=== PATIENT | female | born 1975 | race Asian ===

== ENCOUNTER → 2018-08-03 | Outpatient (CLI) | payer BC ==
[~2018-08-03] MED LIST: ALBU90I INH; ATENOLOL-? DOSE; DOXY100 PO; HYDACE7.5 PO; MECL25 PO; META800 PO; ONDA4 PO; OXYACE5T PO; PRED20 PO; RXPROM25 PO
[2018-08-03 14:17] LABS: BASOPHILS ABSOLUTE AUTO 0.03 K/mm3 (0.00-0.23); BASOPHILS PERCENT AUTO 1 % (0-2); EOSINOPHILS ABSOLUTE AUTO 0.02 K/mm3 (0.00-0.68); EOSINOPHILS PERCENT AUTO 0 % (0-6); Hematocrit 38.2 % (33.0-51.0); Hemoglobin 12.9 g/dL (11.5-16.0); IMMATURE GRAN ABSOLUTE AUTO 0.01 K/mm3 (0.00-0.10); IMMATURE GRAN PERCENT AUTO 0 % (0-1); LYMPHOCYTES ABSOLUTE AUTO 1.32 K/mm3 (0.84-5.20); LYMPHOCYTES PERCENT AUTO 27 % (21-46); MONOCYTES ABSOLUTE AUTO 0.49 K/mm3 (0.16-1.47); MONOCYTES PERCENT AUTO 10 % (4-13); Mean Corpuscular HGB 29.8 pg (26.0-34.0); Mean Corpuscular HGB Conc 33.8 g/dL (31.5-36.5); Mean Corpuscular Volume 88 fL (80-100); Mean Platelet Volume 10.4 fL (9.1-12.4); NEUTROPHILS ABSOLUTE AUTO 3.09 K/mm3 (1.96-9.15); NEUTROPHILS PERCENT AUTO 62 % (41-73); Platelet Count 233 K/mm3 (150-400); RDW Coefficient Variation 11.7 % (11.7-14.2); RDW Standard Deviation 37.9 fL (35.1-46.3); Red Blood Cell Count 4.33 M/mm3 (3.80-5.20); White Blood Cell Count 4.96 K/mm3 (4.00-11.30)
[2018-08-03 14:40] LABS: Alanine Aminotransfer (ALT/SGP 32 U/L (12-78); Albumin, Blood 3.6 g/dL (3.4-5.0); Albumin/Globulin Ratio 1.1 (0.8-1.8); Alk Phos 53 U/L (40-126); Anion Gap 12 mmol/L (6-16); Aspartate Aminotrans (AST/SGOT 23 U/L (12-37); Bilirubin, Total 0.3 mg/dL (0.1-1.0); Blood Urea Nitrogen 15 mg/dL (8-24); Bun/Creatinine Ratio 28.8 (12.0-20.0); CO2, Blood 25 mmol/L (21-32); Calcium, Blood 9.6 mg/dL (8.5-10.1); Chloride, Blood 107 mmol/L (98-108); Creatinine, Blood 0.52 mg/dL (0.40-1.00); Globulin, Blood 3.4 g/dL (2.2-4.0); Glomerular Filtration Rate >60 (60-); Glucose, Blood 95 mg/dL (70-99); Potassium, Blood 3.7 mmol/L (3.5-5.5); Sodium, Blood 144 mmol/L (136-145); Troponin I <0.017 ng/mL (0.000-0.040)
[2018-08-03 14:42] LABS: Thyroid Stimulating Hormone <0.005 uIU/mL (0.360-4.800)
[2018-08-03 15:23] LABS: Triiodothyronine, Free 13.59 pg/mL (2.18-3.98)
== END | disposition home or self-care (01) ==
LOC: LAB EV 14:12 → LAB SHORT 14:12
PROVIDERS: Physician Assistant
DX: R55 Syncope and collapse (principal); E05.90 Thyrotoxicosis, unspecified without thyrotoxic crisis or storm
CPT/HCPCS: 80053; 82607; 84439; 84443; 84481; 84484; 85025

== ENCOUNTER → 2019-02-05 | Outpatient (CLI) | payer BC ==
[2019-02-05 18:46] LABS: BASOPHILS ABSOLUTE AUTO 0.03 K/mm3 (0.00-0.23); BASOPHILS PERCENT AUTO 1 % (0-2); EOSINOPHILS ABSOLUTE AUTO 0.03 K/mm3 (0.00-0.68); EOSINOPHILS PERCENT AUTO 1 % (0-6); Hematocrit 38.3 % (33.0-51.0); Hemoglobin 13.4 g/dL (11.5-16.0); IMMATURE GRAN ABSOLUTE AUTO 0.01 K/mm3 (0.00-0.10); IMMATURE GRAN PERCENT AUTO 0 % (0-1); LYMPHOCYTES ABSOLUTE AUTO 1.18 K/mm3 (0.84-5.20); LYMPHOCYTES PERCENT AUTO 18 % (21-46); MONOCYTES ABSOLUTE AUTO 0.37 K/mm3 (0.16-1.47); MONOCYTES PERCENT AUTO 6 % (4-13); Mean Corpuscular HGB 31.3 pg (26.0-34.0); Mean Corpuscular Volume 90 fL (80-100); Mean Platelet Volume 10.4 fL (9.1-12.4); NEUTROPHILS PERCENT AUTO 75 % (41-73); Platelet Count 269 K/mm3 (150-400); RDW Coefficient Variation 12.4 % (11.7-14.2); RDW Standard Deviation 40.2 fL (35.1-46.3); Red Blood Cell Count 4.28 M/mm3 (3.80-5.20); White Blood Cell Count 6.42 K/mm3 (4.00-11.30)
[2019-02-05 18:55] LABS: Alanine Aminotransfer (ALT/SGP 48 U/L (12-78); Albumin, Blood 4.4 g/dL (3.4-5.0); Albumin/Globulin Ratio 1.1 (0.8-1.8); Alk Phos 84 U/L (40-126); Anion Gap 10 mmol/L (6-16); Aspartate Aminotrans (AST/SGOT 29 U/L (12-37); Bilirubin, Total 0.4 mg/dL (0.1-1.0); Blood Urea Nitrogen 10 mg/dL (8-24); Bun/Creatinine Ratio 14.1 (12.0-20.0); CO2, Blood 27 mmol/L (21-32); Calcium, Blood 9.4 mg/dL (8.5-10.1); Chloride, Blood 103 mmol/L (98-108); Creatinine, Blood 0.71 mg/dL (0.40-1.00); Globulin, Blood 3.9 g/dL (2.2-4.0); Glomerular Filtration Rate >60 (60-); Glucose, Blood 106 mg/dL (70-99); Potassium, Blood 3.7 mmol/L (3.5-5.5); Sodium, Blood 140 mmol/L (136-145); Total Protein, Blood 8.3 g/dL (6.4-8.2)
== END ==
LOC: LAB EV 18:40 → LAB SHORT 18:40
PROVIDERS: Physician Assistant Surgical
DX: R10.11 Right upper quadrant pain (principal)
CPT/HCPCS: 80053; 83690; 85025

== ENCOUNTER → 2019-06-03 | Outpatient (CLI) | payer BC | END | disposition home or self-care (01) | LOC: LAB SHORT 14:11 → PLD 14:11 | DX: D22.5 Melanocytic nevi of trunk (principal); D22.62 Melanocytic nevi of left upper limb, including shoulder | CPT/HCPCS: 88305 ==

== ENCOUNTER 2019-12-28 07:31 | Day surgery (SDC) | payer BC ==
[~2019-12-28] VITALS: Ht 175.3 cm; Wt 101.6 kg
[2019-12-28] MEDS ORDERED: METO25ER PO (08:03)
[2019-12-28] MEDS ORDERED: FERROUS SULFAT324 MG PO (08:03)
[2019-12-28] MEDS ORDERED: LEVSOD100 PO (08:04)
[2019-12-28] MEDS ORDERED: Flonase 0.05% N16 GM (08:04)
[2019-12-28] MEDS ORDERED: LOSARTAN POTAS100 MG PO (08:04)
== END 2019-12-28 09:38 | disposition home or self-care (01) ==
LOC: ORSCSDS 07:31
PROVIDERS: Internal Medicine Gastroenterology
PROC: 0DBE8ZX Excision of Large Intestine, Via Natural or Artificial Opening Endoscopic, Diagnostic (ICD-10-PCS; principal; 2019-12-28 08:45)
PROC: 0DB68ZX Excision of Stomach, Via Natural or Artificial Opening Endoscopic, Diagnostic (ICD-10-PCS; principal; 2019-12-28 08:45)
PROC: 0DB98ZX Excision of Duodenum, Via Natural or Artificial Opening Endoscopic, Diagnostic (ICD-10-PCS; principal; 2019-12-28 08:45)
DX: R10.13 Epigastric pain (principal); R11.2 Nausea with vomiting, unspecified; K64.8 Other hemorrhoids; K25.9 Gastric ulcer, unspecified as acute or chronic, without hemorrhage or perforation; I10 Essential (primary) hypertension; M79.7 Fibromyalgia; E03.9 Hypothyroidism, unspecified; Z86.73 Personal history of transient ischemic attack (TIA), and cerebral infarction without residual deficits; F32.9 Major depressive disorder, single episode, unspecified; E05.00 Thyrotoxicosis with diffuse goiter without thyrotoxic crisis or storm; R19.4 Change in bowel habit; D64.9 Anemia, unspecified; Z80.0 Family history of malignant neoplasm of digestive organs; Z79.899 Other long term (current) drug therapy
CPT/HCPCS: 88305; 88342; J0330; J0461; J2405; J2704; J7120

== ENCOUNTER 2020-10-03 11:40 | Day surgery (SDC) | payer BC ==
[~2020-10-03] VITALS: Ht 177.8 cm; Wt 105.7 kg
[~2020-10-03 11:40] MED LIST changes: +Atarax10 MG PO; +FERROUS SULFAT324 MG PO; +Flonase 0.05% N16 GM; +LEVSOD100 PO; +LOSARTAN POTAS100 MG PO; +METO25ER PO; +METO50ER PO; +ONDA4ODT MM
[2020-10-03] MEDS ORDERED: ZYRTEC10 M2 PO (12:21)
[2020-10-03] MEDS ORDERED: BENADRYL25 MG PO (12:21)
[2020-10-03] MEDS ORDERED: ACET500 (12:21)
[2020-10-03] MEDS ORDERED: LORA10ER PO (12:21)
--- NOTE | 2020-10-03 13:08 | NUR ---
10/03/[address] IN TO OBTAIN ANESTHESIA CONSENT, CONSENT OBTAINED PATIENT PREPPED FOR INTERSCALENE BLOCK, VS DR. NAOMIE LÓPEZ ADMINISTERED SEDATION MEDICATION VIA IV TO HELP THE PATIENT RELAX PRIOR TO THE BLOCK, INTERSCALENE BLOCK COMPLETED WITHOUT COMPLICATION, PATIENT TOLERATED WELL, VS REMAIN STABLE
--- NOTE | 2020-10-03 13:44 | NUR ---
10/03/20 1344 Huber Mendez 1 MG EPI ADDED TO EACH OF THE FIRST 3 BAGS OF LR FOR IRRIGATION/
[2020-10-04] MEDS ORDERED: ACET500 PO (14:36)
[2020-10-04] MEDS ORDERED: Norco 5-325 Ta1 EACH PO (14:36)
== END 2020-10-03 15:20 | disposition home or self-care (01) ==
LOC: ORSCSDS 11:40
PROVIDERS: Orthopaedic Surgery
PROC: 0LQ24ZZ Repair Left Shoulder Tendon, Percutaneous Endoscopic Approach (ICD-10-PCS; principal; 2020-10-03 13:45)
PROC: 0RNK4ZZ Release Left Shoulder Joint, Percutaneous Endoscopic Approach (ICD-10-PCS; principal; 2020-10-03 13:45)
PROC: 0LU24KZ Supplement Left Shoulder Tendon with Nonautologous Tissue Substitute, Percutaneous Endoscopic Approach (ICD-10-PCS; principal; 2020-10-03 13:45)
DX: M75.112 Incomplete rotator cuff tear or rupture of left shoulder, not specified as traumatic (principal); M75.22 Bicipital tendinitis, left shoulder; M75.42 Impingement syndrome of left shoulder; I10 Essential (primary) hypertension; J44.9 Chronic obstructive pulmonary disease, unspecified; E03.9 Hypothyroidism, unspecified; Z87.891 Personal history of nicotine dependence; Z79.899 Other long term (current) drug therapy; E66.9 Obesity, unspecified; Z68.33 Body mass index [BMI] 33.0-33.9, adult
CPT/HCPCS: C1713; J0171; J0690; J1100; J1885; J2001; J2250; J2405; J2704; J3010; J7120

== ENCOUNTER 2020-10-11 05:53 | Day surgery (SDC) | payer BC ==
[~2020-10-11] VITALS: Ht 177.8 cm; Wt 106.1 kg
[~2020-10-11 05:53] MED LIST changes: +ACET500; +ACET500 PO; +BENADRYL25 MG PO; +LORA10ER PO; +Norco 5-325 Ta1 EACH PO; +ZYRTEC10 M2 PO
[2020-10-11] MEDS ORDERED: IBUP600 PO (07:11)
[2020-10-11 11:50] LABS: BASOPHILS ABSOLUTE AUTO 0.04 K/mm3 (0.00-0.23); BASOPHILS PERCENT AUTO 0 % (0-2); EOSINOPHILS ABSOLUTE AUTO 0.27 K/mm3 (0.00-0.68); EOSINOPHILS PERCENT AUTO 2 % (0-6); Hemoglobin 12.4 g/dL (11.5-16.0); IMMATURE GRAN ABSOLUTE AUTO 0.05 K/mm3 (0.00-0.10); IMMATURE GRAN PERCENT AUTO 0 % (0-1); LYMPHOCYTES ABSOLUTE AUTO 1.57 K/mm3 (0.84-5.20); LYMPHOCYTES PERCENT AUTO 13 % (21-46); MONOCYTES PERCENT AUTO 5 % (4-13); Mean Corpuscular HGB 30.9 pg (26.0-34.0); Mean Corpuscular HGB Conc 31.8 g/dL (31.5-36.5); Mean Corpuscular Volume 97 fL (80-100); NEUTROPHILS PERCENT AUTO 80 % (41-73); Platelet Count 255 K/mm3 (150-400); RDW Coefficient Variation 11.8 % (11.7-14.2); RDW Standard Deviation 42.5 fL (35.1-46.3); Red Blood Cell Count 4.01 M/mm3 (3.80-5.20); White Blood Cell Count 12.43 K/mm3 (4.00-11.30)
--- NOTE | 2020-10-11 14:42 | NUR ---
1420 PAIN PT TEARFUL, REPORTS ABD CRAMPING AND VAGINAL PAIN. PT REQUESTS ADVIL. PT OFFERED IV OR PO NARCOTICS AND DECLINES SHE STATES SHE WOULD LIKE TO JUST TRY THE ADVIL. PTS SIGNIFICANT OTHER AT BEDSIDE
--- NOTE | 2020-10-11 19:15 | NUR ---
SUMMARY PT WITH ABD AND VAGINAL PAIN BUT REPORTS PAIN IS AT ACCEPTABLE LEVEL. PT NAUSEATED WITH FOOD AT DINNER IS LEELA YOGURT AND FLUIDS. SCANT BLOODY VAGINAL DRAINAGE
[2020-10-12 04:26] LABS: BASOPHILS ABSOLUTE AUTO 0.02 K/mm3 (0.00-0.23); BASOPHILS PERCENT AUTO 0 % (0-2); EOSINOPHILS ABSOLUTE AUTO 0.15 K/mm3 (0.00-0.68); EOSINOPHILS PERCENT AUTO 2 % (0-6); Hematocrit 35.2 % (33.0-51.0); Hemoglobin 11.4 g/dL (11.5-16.0); IMMATURE GRAN ABSOLUTE AUTO 0.04 K/mm3 (0.00-0.10); IMMATURE GRAN PERCENT AUTO 0 % (0-1); LYMPHOCYTES ABSOLUTE AUTO 0.56 K/mm3 (0.84-5.20); LYMPHOCYTES PERCENT AUTO 6 % (21-46); MONOCYTES ABSOLUTE AUTO 0.85 K/mm3 (0.16-1.47); MONOCYTES PERCENT AUTO 9 % (4-13); Mean Corpuscular HGB 30.7 pg (26.0-34.0); Mean Corpuscular HGB Conc 32.4 g/dL (31.5-36.5); Mean Corpuscular Volume 95 fL (80-100); Mean Platelet Volume 9.7 fL (9.1-12.4); NEUTROPHILS ABSOLUTE AUTO 7.73 K/mm3 (1.96-9.15); NEUTROPHILS PERCENT AUTO 83 % (41-73); Platelet Count 236 K/mm3 (150-400); RDW Coefficient Variation 11.7 % (11.7-14.2); RDW Standard Deviation 40.7 fL (35.1-46.3); Red Blood Cell Count 3.71 M/mm3 (3.80-5.20); White Blood Cell Count 9.35 K/mm3 (4.00-11.30)
--- NOTE | 2020-10-12 05:14 | NUR ---
SHIFT SUMMARY PT A/O X4. SBA IN ROOM WHEN UP. IV FLUIDS INFUSING PER ORDER OVERNIGHT; WILL DC WITH ALMANZAR PER ORDERS. TOLERATING PO INTAKE W/O NAUSEA. PAIN MANAGED WITH PO PAIN MED. PT DENIES VAGINAL BLEEDING OVERNIGHT. USING K-PAD FOR COMFORT ON ABD. PT REPOSITIONS SELF IN BED. VSS OVERNIGHT. PT RESTING AT THIS TIME WITH CALL LIGHT IN REACH.
[2020-10-12] MEDS ORDERED: OXYACE7.5T PO (09:41)
[2020-10-12] MEDS ORDERED: MOTRIN IB200 MG PO (09:42)
[2020-10-12] MEDS ORDERED: PROM25 PO (09:42)
[2020-10-12] MEDS ORDERED: DOCU100 PO (09:44)
[2020-10-12] MEDS ORDERED: DULCOLAX400 MG/5 M PO (09:49)
[2020-10-12] MEDS ORDERED: SENN187 PO (09:49)
[2020-10-12] MEDS ORDERED: SIME80CH PO (09:52)
--- NOTE | 2020-10-12 11:31 | NUR ---
DISCHARGE SUMMARY PT A&OX4, VSS, LEFT FLOOR VIA WC WITH ASSOCIATE PROFESSOR OF MUSIC TO GO HOME WITH , WITH ALL PERSONAL POSSESSIONS INCLUDING DC PACKET AND 1 NARC SCRIPT. DC INSTRUCTIONS PROVIDED. PT REP UNDERSTANDING THOSE INSTRUCTIONS. 2 IV DC'D.
== END 2020-10-12 10:49 | disposition home or self-care (01) ==
LOC: ORSCMMR 05:53 → ORD 07:30 → ORSCMMR 07:30 → SURS 11:09 → ORSCMMR 10-12 10:49
PROVIDERS: Obstetrics & Gynecology
DX: N92.0 Excessive and frequent menstruation with regular cycle (principal); D50.9 Iron deficiency anemia, unspecified; D25.9 Leiomyoma of uterus, unspecified; D25.2 Subserosal leiomyoma of uterus; N73.6 Female pelvic peritoneal adhesions (postinfective); I10 Essential (primary) hypertension; J44.9 Chronic obstructive pulmonary disease, unspecified; Z87.891 Personal history of nicotine dependence; Z79.899 Other long term (current) drug therapy; E05.00 Thyrotoxicosis with diffuse goiter without thyrotoxic crisis or storm; M79.7 Fibromyalgia
CPT/HCPCS: 58571; S2900; 36415; 85025; 86850; 86900; 86901; 88307; A9270-GY; J0330; J0690; J1170; J1885; J2250; J2405; J2704; J2710; J3010; J7120

== ENCOUNTER 2021-02-16 09:54 | Day surgery (SDC) | payer BC ==
[~2021-02-16] VITALS: Ht 177.8 cm; Wt 110.0 kg
[~2021-02-16 09:54] MED LIST changes: +DOCU100 PO; +DULCOLAX400 MG/5 M PO; +IBUP600 PO; +MOTRIN IB200 MG PO; +OXYACE7.5T PO; +PROM25 PO; +SENN187 PO; +SIME80CH PO
[2021-02-16] MEDS ORDERED: Triamcinolone A15 G3 TOP (10:28)
--- NOTE | 2021-02-16 10:41 | NUR ---
PT STATES SHE HAD A HYSTERECTOMY. CALL LIGHT IN REACH.
--- NOTE | 2021-02-16 14:41 | NUR ---
RIGHT RADIAL TR BAND SITE SOFT WITH NO HEMATOMA, NO PULSATILE BLEEDING WITH WRIST BOARD IN PLACE. PT DRINKING COFFEE AND CALL LIGHT IN REACH.
--- NOTE | 2021-02-16 16:16 | NUR ---
PT UP AND DRESSED. R RADIAL SITE CLEANSED AND CLOTH DOT PLACED. SALINE LOCK REMOVED WITH CATHETER INTACT. DISCHARGE GONE OVER WITH PT, VERBALIZES UNDERSTANDING. PT TO PRIVATE VEHICLE PER W/C WITH ONE STAFF. ARM BOARD PLACED TO R FOREARM.
== END 2021-02-16 16:15 | disposition home or self-care (01) ==
LOC: MHTC 09:54
DX: R07.89 Other chest pain (principal); Q24.5 Malformation of coronary vessels; I10 Essential (primary) hypertension; E03.9 Hypothyroidism, unspecified; E66.9 Obesity, unspecified; Z87.891 Personal history of nicotine dependence; Z68.34 Body mass index [BMI] 34.0-34.9, adult
CPT/HCPCS: 76937; 93454; 99152; C1769; C1894; J1644; J2250; J3010; J7030; J7050; Q9967

== ENCOUNTER 2021-04-23 08:01 | Day surgery (SDC) | payer BC ==
[~2021-04-23] VITALS: Ht 177.8 cm; Wt 107.1 kg
[~2021-04-23 08:01] MED LIST changes: -ASPI81CH PO; -HYDROCHLOROTH12.5 MG PO
[2021-04-23] MEDS ORDERED: HYDROCHLOROTH12.5 MG PO (08:52)
[2021-04-23] MEDS ORDERED: ASPI81CH PO (08:53)
== END 2021-04-23 10:38 | disposition home or self-care (01) ==
LOC: ORSCSDS 08:01 → ORD 09:30 → ORSCSDS 09:30
PROVIDERS: Surgery
PROC: 8E0KXY7 Examination of Musculoskeletal System (ICD-10-PCS; principal; 2021-04-23 09:30)
DX: K60.1 Chronic anal fissure (principal); K62.5 Hemorrhage of anus and rectum; I10 Essential (primary) hypertension; I25.10 Atherosclerotic heart disease of native coronary artery without angina pectoris; J44.9 Chronic obstructive pulmonary disease, unspecified; Z87.891 Personal history of nicotine dependence; G47.33 Obstructive sleep apnea (adult) (pediatric); K76.0 Fatty (change of) liver, not elsewhere classified; E05.00 Thyrotoxicosis with diffuse goiter without thyrotoxic crisis or storm; M79.7 Fibromyalgia; Z79.899 Other long term (current) drug therapy; Z79.82 Long term (current) use of aspirin
CPT/HCPCS: J0690; J1100; J2001; J2250; J2405; J2704; J3010; J7120

== ENCOUNTER → 2021-04-23 | Outpatient (CLI) | payer BC ==
[~2021-04-23] MED LIST changes: +ASPI81CH PO; +HYDROCHLOROTH12.5 MG PO; +Triamcinolone A15 G3 TOP
[2021-04-24 15:09] LABS: SARS COV-2 IGG AB Negative (Negative); SARS COV-2 IGM AB Negative (Negative)
== END ==
LOC: LAB SHORT 12:58 → LAB 12:58
PROVIDERS: Physician Assistant
DX: Z11.52 Encounter for screening for COVID-19 (principal)
CPT/HCPCS: 86769

== ENCOUNTER → 2021-08-02 | Outpatient (CLI) | payer BC ==
[~2021-08-02] MED LIST changes: +ASPI81CH PO; +HYDROCHLOROTH12.5 MG PO
[2021-08-02 19:40] LABS: BASOPHILS ABSOLUTE AUTO 0.06 K/mm3 (0.00-0.23); BASOPHILS PERCENT AUTO 1 % (0-2); EOSINOPHILS ABSOLUTE AUTO 0.07 K/mm3 (0.00-0.68); EOSINOPHILS PERCENT AUTO 1 % (0-6); Hematocrit 36.9 % (33.0-51.0); Hemoglobin 12.3 g/dL (11.5-16.0); IMMATURE GRAN ABSOLUTE AUTO 0.02 K/mm3 (0.00-0.10); IMMATURE GRAN PERCENT AUTO 0 % (0-1); LYMPHOCYTES PERCENT AUTO 22 % (21-46); MONOCYTES ABSOLUTE AUTO 0.45 K/mm3 (0.16-1.47); MONOCYTES PERCENT AUTO 7 % (4-13); Mean Corpuscular HGB 32.1 pg (26.0-34.0); Mean Corpuscular HGB Conc 33.3 g/dL (31.5-36.5); Mean Corpuscular Volume 96 fL (80-100); Mean Platelet Volume 10.9 fL (9.1-12.4); NEUTROPHILS ABSOLUTE AUTO 4.35 K/mm3 (1.96-9.15); NEUTROPHILS PERCENT AUTO 69 % (41-73); Platelet Count 346 K/mm3 (150-400); RDW Coefficient Variation 12.3 % (11.7-14.2); RDW Standard Deviation 42.9 fL (35.1-46.3); Red Blood Cell Count 3.83 M/mm3 (3.80-5.20); White Blood Cell Count 6.35 K/mm3 (4.00-11.30)
[2021-08-02 22:20] LABS: Alanine Aminotransfer (ALT/SGP 42 U/L (12-78); Albumin, Blood 3.8 g/dL (3.4-5.0); Alk Phos 77 U/L (50-136); Anion Gap 6 mmol/L (6-16); Aspartate Aminotrans (AST/SGOT 30 U/L (12-37); Bilirubin, Total 0.3 mg/dL (0.1-1.0); Blood Urea Nitrogen 7 mg/dL (8-24); Bun/Creatinine Ratio 10.2 (12.0-20.0); CO2, Blood 30 mmol/L (21-32); Calcium, Blood 8.8 mg/dL (8.5-10.1); Chloride, Blood 109 mmol/L (98-108); Creatinine, Blood 0.68 mg/dL (0.40-1.00); Ferritin, Serum 137 ng/mL (8-252); Free Thyroxine 1.13 ng/dL (0.70-1.60); Globulin, Blood 3.9 g/dL (2.2-4.0); Glomerular Filtration Rate >60 (60-); Glucose, Blood 86 mg/dL (70-99); Iron Serum 69 ug/dL (50-170); Percent Saturation 16.5 % (15.0-50.0); Potassium, Blood 3.4 mmol/L (3.5-5.5); Sodium, Blood 145 mmol/L (136-145); Thyroid Stimulating Hormone 0.922 uIU/mL (0.360-4.800); Total Iron Binding Capacity 418 ug/dL (250-450); Total Protein, Blood 7.7 g/dL (6.4-8.2); Triiodothyronine, Free 2.37 pg/mL (2.18-3.98)
== END ==
LOC: LAB SHORT 17:55 → LAB 17:55
PROVIDERS: Family Medicine
DX: D50.9 Iron deficiency anemia, unspecified (principal); E04.1 Nontoxic single thyroid nodule
CPT/HCPCS: 80053; 82728; 83540; 83550; 84439; 84443; 84481; 85025

== ENCOUNTER 2021-08-27 10:54 | Day surgery (SDC) | payer BC ==
[~2021-08-27] VITALS: Ht 177.8 cm; Wt 107.2 kg
== END 2021-08-27 13:39 | disposition home or self-care (01) ==
LOC: ORSCSDS 10:54
PROVIDERS: Student in an Organized Health Care Education/Training Program
PROC: 0DB68ZX Excision of Stomach, Via Natural or Artificial Opening Endoscopic, Diagnostic (ICD-10-PCS; principal; 2021-08-27 14:15)
PROC: 0DB48ZX Excision of Esophagogastric Junction, Via Natural or Artificial Opening Endoscopic, Diagnostic (ICD-10-PCS; principal; 2021-08-27 14:15)
DX: K31.89 Other diseases of stomach and duodenum (principal); Z80.0 Family history of malignant neoplasm of digestive organs; K29.70 Gastritis, unspecified, without bleeding; F32.A Depression, unspecified; E03.9 Hypothyroidism, unspecified; Z87.891 Personal history of nicotine dependence; E66.9 Obesity, unspecified; Z68.33 Body mass index [BMI] 33.0-33.9, adult; Z79.899 Other long term (current) drug therapy
CPT/HCPCS: J2704; J7120

== ENCOUNTER 2021-10-02 09:15 | Day surgery (SDC) | payer BC ==
[~2021-10-02] VITALS: Ht 177.8 cm; Wt 109.9 kg
[~2021-10-02 09:15] MED LIST changes: +FERSU300 PO; +Isosorbide Mono30 MG PO; +MULVITA PO; +VITAMIN D310 MC4 PO
--- NOTE | 2021-10-02 10:20 | NUR ---
[facility] in [facility] warming gown applied. History, Chart, Medications and Allergies reviewed before start of procedure.Lungs clear T/O to Auscultation. Patient confirms NPO status and agrees with scheduled surgery. Pre-Op teaching done. Pt verbalizes understanding. Patient States Post-Procedure ride home has been arranged.
--- NOTE | 2021-10-02 11:57 | NUR ---
Discharge instructions reviewed with patient. Patient verbalizes understanding. Copy given to patient to take home. Patient States Post-Procedure ride home has been arranged. Discharged via wheelchair to private car for ride home.
== END 2021-10-02 22:49 | disposition home or self-care (01) ==
LOC: ORSCMMR 09:15
PROVIDERS: Surgery
PROC: 8E0KXY7 Examination of Musculoskeletal System (ICD-10-PCS; principal; 2021-10-02 10:30)
PROC: 3E0H7GC Introduction of Other Therapeutic Substance into Lower GI, Via Natural or Artificial Opening (ICD-10-PCS; principal; 2021-10-02 10:30)
DX: K60.1 Chronic anal fissure (principal); K62.5 Hemorrhage of anus and rectum; K64.8 Other hemorrhoids; E03.9 Hypothyroidism, unspecified; K21.9 Gastro-esophageal reflux disease without esophagitis; Z87.891 Personal history of nicotine dependence; M79.7 Fibromyalgia; Z79.899 Other long term (current) drug therapy; Z79.82 Long term (current) use of aspirin
CPT/HCPCS: J0585; J1100; J2405; J2704; J3010; J7120

== ENCOUNTER 2023-03-26 08:39 | Day surgery (SDC) | payer BC ==
[~2023-03-26] VITALS: Ht 177.8 cm; Wt 102.5 kg
[2023-03-26 12:40] VITALS: BP 130/85
--- NOTE | 2023-03-26 13:11 | NUR ---
03/26/23 1311 Eden Menchaca REPORT RECEIEVED AND CARE TRANSFERRED FROM MICHEAL RENDON AND MICHEAL FREEMAN AT 1230. GIVEN IV PAIN MEDICINE AND IV NAUSEA MEDICINE BY MICHEAL CHASE. PATIENT STATES THEY HAVE BEEN GIVEN RX FOR ANTI-NAUSEA MED AND THEY HAVE IT IN THE CAR, RN EDUCATED RN WILL ASK ANESTHESIA HOW TO TIME THAT ORAL MED FROM WHEN IV ZOFRAN WAS GIVEN. PASSED ALONG TO MICHEAL FREEMAN AND MICHEAL RENDON. PATIENT PROVIDED POPSICLE AND ICE WATER TO ASSIST WITH THROAT PAIN. 1305: CARE TRANSFERRED BACK TO MICHEAL FREEMAN AND MICHEAL RENDON.
== END 2023-03-26 14:25 | disposition home or self-care (01) ==
LOC: ORSCSDS 08:39
PROVIDERS: Otolaryngology
PROC: 0GTH0ZZ Resection of Right Thyroid Gland Lobe, Open Approach (ICD-10-PCS; principal; 2023-03-26 10:00)
DX: E05.00 Thyrotoxicosis with diffuse goiter without thyrotoxic crisis or storm (principal); R13.14 Dysphagia, pharyngoesophageal phase; D34 Benign neoplasm of thyroid gland; I10 Essential (primary) hypertension; G47.33 Obstructive sleep apnea (adult) (pediatric); Z86.73 Personal history of transient ischemic attack (TIA), and cerebral infarction without residual deficits; J44.9 Chronic obstructive pulmonary disease, unspecified; K76.0 Fatty (change of) liver, not elsewhere classified; F32.A Depression, unspecified; Z79.899 Other long term (current) drug therapy; Z79.82 Long term (current) use of aspirin
CPT/HCPCS: 88305; 88307; A9270; J0330; J1100; J2250; J2370; J2405; J2704; J2795; J3010; J7120